=== PATIENT | female | born 1965 | race Caucasian/White ===

== ENCOUNTER → 2016-10-14 | Outpatient (CLI) | payer OTHER ==
--- NOTE | 2016-10-14 16:14 | DX ---
Bilateral Feet - 6 views Indication: Polyarthralgia. Technique: Bilateral AP, oblique, and lateral views. Comparison: None Findings: The normally mineralized bones are anatomically aligned. No periarticular demineralization. Minimal osteoarthritis of the first metatarsophalangeal joint is evidenced by eccentric joint space narrowing and small marginal osteophytes along the lateral and medial joint line. Joint spaces are ot herwise well preserved. No erosions or soft tissue calcification. A small degenerative subcortical cy st is present in the right fifth metatarsal head. Impression: 1. 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 2. No erosive arthropathy.
--- NOTE | 2016-10-14 16:26 | DX ---
Bilateral hand series 3 views each 1011 hours. History: Polyarthralgia. Findings: Left hand: Joint spaces are normal. No erosions or osteophytes are seen. Mineralization is normal. So ft tissues are unremarkable. Right hand: Small subchondral cyst is seen distal head of the right third metacarpal with well-circum scribed margin. There is no joint space narrowing, erosions, or osteophyte seen. Mineralization is no rmal. Soft tissues are unremarkable. Impression: 1. Well-circumscribed subchondral cyst distal head of the right third metacarpal that is isolated. No significant amount is seen bilaterally.
--- NOTE | 2016-10-14 16:52 | DX ---
SI joint series 3 views 1020 hours. History: Low back and SI joint pain. Findings: SI joints are normal in appearance without sclerosis or erosion. No osteophytes are seen. T he lower lumbar spine visualized is normal. Hip joint spaces appear to be normal. IUD is projected in the soft tissues mid pelvis. Impression: 1. Normal SI joint series.
== END ==
LOC: CIMAGING 09:53
PROVIDERS: ATTEND Internal Medicine
DX: M54.5 Low back pain (principal); M53.3 Sacrococcygeal disorders, not elsewhere classified; M79.642 Pain in left hand; M85.441 Solitary bone cyst, right hand; M79.672 Pain in left foot; M19.071 Primary osteoarthritis, right ankle and foot
CPT/HCPCS: 72202-PO; 73130-PO; 73630-PO

== ENCOUNTER → 2017-03-18 | Outpatient (CLI) | payer OTHER | LOC: CIMAGING 07:46 | PROVIDERS: ATTEND Physician Assistant Medical | DX: Z12.31 Encounter for screening mammogram for malignant neoplasm of breast (principal) | CPT/HCPCS: G0202 ==

== ENCOUNTER → 2018-07-05 | Outpatient (CLI) | payer OTHER | LOC: CIMAGING 12:28 | PROVIDERS: ATTEND Physician Assistant Medical | DX: Z12.31 Encounter for screening mammogram for malignant neoplasm of breast (principal) ==